=== PATIENT | male | born 1960 | race Caucasian/White ===

== ENCOUNTER 2020-12-04 14:54 | Inpatient (IN) | payer OTHER ==
[~2020-12-04 14:54] MED LIST: diazePAM 5 MG TABLET PO ONE
[2020-12-04] MEDS ORDERED: MAG HYDROX/AL HYDROX/SIMETH 30 ML UNIT-DOSE CUP PO PRN (18:37)
[2020-12-04] MEDS ORDERED: ACETAMINOPHEN 325 MG TABLET (FP) PO PRN ×2 (18:37)
[2020-12-04] MEDS ORDERED: NICOTINE 10 MG CARTRIDGE (INHALER) IH PRN (18:37)
[2020-12-04] MEDS ORDERED: MAGNESIUM HYDROX 2400MG/30ML ORAL SUSPENSION 30 ML CUP PO PRN (18:37)
[2020-12-04] MEDS ORDERED: MAGNESIUM CITRATE 300 ML BOTTLE PO PRN (18:37)
[2020-12-04] MEDS ORDERED: MENTHOL/PHENOL 1 EACH UD MM PRN (18:37)
[2020-12-04] MEDS ORDERED: ONDANSETRON *ODT* 4 MG TABLET SL PRN (18:37)
[2020-12-04] MEDS ORDERED: BISMUTH SUBSALICYLATE 524 MG/30 ML PO PRN (18:37)
[2020-12-04 19:11] VITALS: BMI 25.0
[2020-12-04] MEDS ORDERED: diazePAM 5 MG TABLET ONE ×2 (20:40→23:32)
[2020-12-04] MEDS: diazePAM 5 MG TABLET PO PRN (20:44)
[2020-12-04] MEDS: MELATONIN 5 MG TABLETS PO SCH (23:33)
[2020-12-04] MEDS: THIAMINE HCL 100 MG TABLET (FP) PO SCH (23:33)
[2020-12-04] MEDS: diazePAM 5 MG TABLET PO SCH (23:34)
[2020-12-05] MEDS ORDERED: diazePAM 5 MG TABLET ONE (05:32)
[2020-12-05] MEDS ORDERED: METHOCARBAMOL 500 MG TABLET ONE (05:32)
[2020-12-05] MEDS ORDERED: IBUPROFEN 400 MG TABLET (FP) PO ONE (05:33)
[2020-12-05] MEDS: IBUPROFEN 400 MG TABLET (FP) PO PRN (05:35)
[2020-12-05] MEDS: diazePAM 5 MG TABLET PO SCH ×4 (05:35→22:18)
[2020-12-05] MEDS: METHOCARBAMOL 500 MG TABLET PO PRN (05:35)
[2020-12-05] MEDS ORDERED: PERPHENAZINE 8 MG TABLET PO SCH (10:30)
[2020-12-05] MEDS: PRENATAL VITAMINS W/ FOLIC ACID TABLET (FP) PO SCH (10:31)
[2020-12-05] MEDS ORDERED: methaDONE HCL 40 MG DISPERSABLE TABLET PO ONE (10:46)
[2020-12-05] MEDS: ESCITALOPRAM OXALATE 10 MG TABLET PO SCH (11:03)
[2020-12-05 12:09] LABS: ALBUMIN 3.7 g/dl (3.4-5.0); BLOOD UREA NITROGEN 18.5 mg/dL (7-18); CALCIUM 8.5 mg/dL (8.5-10.1)
[2020-12-05 12:12] LABS: HEMATOCRIT 32.6 % (35.4-49); HEMOGLOBIN 11.1 GM/dL (11.7-16.9); MCHC 33.9 g/dl (32.0-35.9); MEAN CELL VOLUME 91.3 fl (80-96); PLATELET COUNT 131 10^3/uL (134-434); RBC 3.57 M/mm3 (4.00-5.60); RDW 14.3 % (11.9-15.9); WHITE BLOOD COUNT 3.3 K/mm3 (4.0-10.0)
[2020-12-05 12:14] LABS: BILIRUBIN,TOTAL 0.3 mg/dL (0.2-1); TOT PROT 6.8 g/dl (6.4-8.2)
[2020-12-05] MEDS: levETIRAcetam 500 MG TABLET (FP) PO SCH ×2 (12:31→22:18)
[2020-12-05] MEDS: PERPHENAZINE PO SCH (14:36)
[2020-12-05] MEDS: PSYLLIUM 5.85 GM PACKET PO SCH (15:07)
[2020-12-05] MEDS: DOCUSATE SODIUM 100 MG CAPSULE (FP) PO SCH ×2 (15:07→22:18)
[2020-12-05] MEDS: THIAMINE HCL 100 MG TABLET (FP) PO SCH (22:18)
[2020-12-05] MEDS: SENNOSIDES 8.6MG TABLET (FP) PO SCH (22:19)
[2020-12-05] MEDS: MELATONIN 5 MG TABLETS PO SCH (22:22)
[2020-12-06] MEDS: DOCUSATE SODIUM 100 MG CAPSULE (FP) PO SCH ×3 (05:49→22:22)
[2020-12-06] MEDS: diazePAM 5 MG TABLET PO SCH ×3 (05:50→22:24)
[2020-12-06] MEDS: methaDONE HCL 40 MG DISPERSABLE TABLET PO SCH (08:04)
[2020-12-06] MEDS: levETIRAcetam 500 MG TABLET (FP) PO SCH ×2 (09:02→22:22)
[2020-12-06] MEDS: diazePAM 5 MG TABLET PO PRN (09:03)
[2020-12-06] MEDS: PRENATAL VITAMINS W/ FOLIC ACID TABLET (FP) PO SCH (09:03)
[2020-12-06] MEDS: ESCITALOPRAM OXALATE 10 MG TABLET PO SCH (09:03)
[2020-12-06] MEDS: IBUPROFEN 400 MG TABLET (FP) PO PRN (09:04)
[2020-12-06] MEDS: METHOCARBAMOL 500 MG TABLET PO PRN (09:04)
[2020-12-06] MEDS: PERPHENAZINE PO SCH (09:06)
[2020-12-06] MEDS: PSYLLIUM 5.85 GM PACKET PO SCH (13:25)
[2020-12-06] MEDS: MELATONIN 5 MG TABLETS PO SCH (22:22)
[2020-12-06] MEDS: SENNOSIDES 8.6MG TABLET (FP) PO SCH (22:22)
[2020-12-06] MEDS: THIAMINE HCL 100 MG TABLET (FP) PO SCH (22:24)
[2020-12-07] MEDS: diazePAM 5 MG TABLET PO PRN ×2 (00:49→10:26)
[2020-12-07] MEDS: DOCUSATE SODIUM 100 MG CAPSULE (FP) PO SCH ×3 (05:53→22:38)
[2020-12-07] MEDS: methaDONE HCL 40 MG DISPERSABLE TABLET PO SCH (05:53)
[2020-12-07] MEDS: diazePAM 5 MG TABLET PO SCH ×2 (05:53→18:18)
[2020-12-07] MEDS: PRENATAL VITAMINS W/ FOLIC ACID TABLET (FP) PO SCH (10:25)
[2020-12-07] MEDS: levETIRAcetam 500 MG TABLET (FP) PO SCH ×2 (10:25→22:38)
[2020-12-07] MEDS: ESCITALOPRAM OXALATE 10 MG TABLET PO SCH (10:26)
[2020-12-07] MEDS: METHOCARBAMOL 500 MG TABLET PO PRN ×2 (10:26→23:34)
[2020-12-07] MEDS: PERPHENAZINE PO SCH (10:26)
[2020-12-07] MEDS: PSYLLIUM 5.85 GM PACKET PO SCH (14:13)
[2020-12-07] MEDS: THIAMINE HCL 100 MG TABLET (FP) PO SCH (22:38)
[2020-12-07] MEDS: SENNOSIDES 8.6MG TABLET (FP) PO SCH (22:38)
[2020-12-07] MEDS: MELATONIN 5 MG TABLETS PO SCH ×2 (22:38→22:41)
[2020-12-07] MEDS: IBUPROFEN 400 MG TABLET (FP) PO PRN (23:33)
[2020-12-08] MEDS: hydrOXYzine PAMOATE 25 MG CAPSULE (FP) PO PRN ×2 (01:00→11:07)
[2020-12-08] MEDS ORDERED: diazePAM 5 MG TABLET PO ONE (06:00)
[2020-12-08] MEDS: methaDONE HCL 40 MG DISPERSABLE TABLET PO SCH (06:27)
[2020-12-08] MEDS: DOCUSATE SODIUM 100 MG CAPSULE (FP) PO SCH ×3 (06:27→22:19)
[2020-12-08] MEDS ORDERED: LACTULOSE 20 GM/30 ML UDC (FOR ORAL USE ONLY) PO ONE (10:30)
[2020-12-08] MEDS: levETIRAcetam 500 MG TABLET (FP) PO SCH ×2 (11:07→22:20)
[2020-12-08] MEDS: PRENATAL VITAMINS W/ FOLIC ACID TABLET (FP) PO SCH (11:07)
[2020-12-08] MEDS: ESCITALOPRAM OXALATE 10 MG TABLET PO SCH (11:07)
[2020-12-08] MEDS: METHOCARBAMOL 500 MG TABLET PO PRN (11:08)
[2020-12-08] MEDS: PERPHENAZINE PO SCH (11:14)
[2020-12-08] MEDS: PSYLLIUM 5.85 GM PACKET PO SCH (14:47)
[2020-12-08] MEDS: THIAMINE HCL 100 MG TABLET (FP) PO SCH (22:20)
[2020-12-08] MEDS: SENNOSIDES 8.6MG TABLET (FP) PO SCH (22:20)
[2020-12-08] MEDS: MELATONIN 5 MG TABLETS PO SCH (23:24)
[2020-12-09] MEDS: methaDONE HCL 40 MG DISPERSABLE TABLET PO SCH (06:03)
[2020-12-09] MEDS: DOCUSATE SODIUM 100 MG CAPSULE (FP) PO SCH ×2 (06:04→13:17)
[2020-12-09] MEDS: PRENATAL VITAMINS W/ FOLIC ACID TABLET (FP) PO SCH (10:27)
[2020-12-09] MEDS: METHOCARBAMOL 500 MG TABLET PO PRN (10:27)
[2020-12-09] MEDS: levETIRAcetam 500 MG TABLET (FP) PO SCH (10:27)
[2020-12-09] MEDS: ESCITALOPRAM OXALATE 10 MG TABLET PO SCH (10:28)
[2020-12-09] MEDS: hydrOXYzine PAMOATE 25 MG CAPSULE (FP) PO PRN (10:28)
[2020-12-09] MEDS: PERPHENAZINE PO SCH (10:29)
[2020-12-09 12:12] VITALS: BP 114/71; PULSE 63; TEMP 97.8
[2020-12-09] MEDS: PSYLLIUM 5.85 GM PACKET PO SCH (13:18)
== END 2020-12-09 13:24 | disposition other institution (70) | DRG 897 ==
LOC: YASAS 14:54 → Y6N 12-05 08:49
PROVIDERS: ADMIT Allergy & Immunology; ATTEND Allergy & Immunology
PROC: HZ2ZZZZ Detoxification Services for Substance Abuse Treatment (ICD-10-PCS; principal; 2020-12-05)
DX: F13.230 Sedative, hypnotic or anxiolytic dependence with withdrawal, uncomplicated (principal); F11.20 Opioid dependence, uncomplicated; F25.9 Schizoaffective disorder, unspecified; G40.909 Epilepsy, unspecified, not intractable, without status epilepticus; D69.6 Thrombocytopenia, unspecified; K59.00 Constipation, unspecified; K57.30 Diverticulosis of large intestine without perforation or abscess without bleeding; M19.011 Primary osteoarthritis, right shoulder; M19.012 Primary osteoarthritis, left shoulder; M16.12 Unilateral primary osteoarthritis, left hip; Z87.891 Personal history of nicotine dependence; Z59.0 Homelessness
CPT/HCPCS: 36415; 80053; 80177; 85027; 86780; 93005; 93010; C9803; U0003; U0005

== ENCOUNTER 2020-12-09 13:54 | Inpatient (IN) | payer OTHER ==
[~2020-12-09 13:54] MED LIST changes: +ACETAMINOPHEN 325 MG TABLET (FP) PO PRN; +IBUPROFEN 400 MG TABLET (FP) PO PRN; +LOPERAMIDE HCL 2 MG CAPSULE PO PRN; +MAG HYDROX/AL HYDROX/SIMETH 30 ML UNIT-DOSE CUP PO PRN; +MAGNESIUM CITRATE 300 ML BOTTLE PO PRN; +MAGNESIUM HYDROX 2400MG/30ML ORAL SUSPENSION 30 ML CUP PO PRN; +P-EPHED 60MG/TRIPROLIDI 2.5MG TABLET PO PRN; -diazePAM 5 MG TABLET PO ONE; +guaiFENesin 200 MG/10 ML 10 ML UNIT-DOSE CUPS PO PRN
[2020-12-09] MEDS: PSYLLIUM 5.85 GM PACKET PO SCH (16:19)
[2020-12-09] MEDS: DOCUSATE SODIUM 100 MG CAPSULE (FP) PO SCH ×2 (16:19→22:16)
[2020-12-09] MEDS: MELATONIN 5 MG TABLETS PO SCH (22:16)
[2020-12-09] MEDS: levETIRAcetam 500 MG TABLET (FP) PO SCH (22:16)
[2020-12-09] MEDS: THIAMINE HCL 100 MG TABLET (FP) PO SCH (22:17)
[2020-12-09] MEDS: SENNOSIDES 8.6MG TABLET (FP) PO SCH (22:18)
[2020-12-10] MEDS: DOCUSATE SODIUM 100 MG CAPSULE (FP) PO SCH ×4 (06:15→21:04)
[2020-12-10] MEDS ORDERED: methaDONE HCL 40 MG DISPERSABLE TABLET PO ONE (08:21)
[2020-12-10] MEDS ORDERED: PT OWN MED DRAWER 7, Y5N ONE ×2 (08:56→20:16)
[2020-12-10] MEDS: PRENATAL VITAMINS W/ FOLIC ACID TABLET (FP) PO SCH (09:30)
[2020-12-10] MEDS: ESCITALOPRAM OXALATE 10 MG TABLET PO SCH (09:31)
[2020-12-10] MEDS: levETIRAcetam 500 MG TABLET (FP) PO SCH ×2 (11:46→21:04)
[2020-12-10] MEDS ORDERED: PNEUMOCOCCAL 23 VACCINE 0.5 ML VIAL IM ONE (12:00)
[2020-12-10] MEDS ORDERED: TUBERCULIN PPD 5 TU/0.1ML VIAL ID ONE (12:06)
[2020-12-10] MEDS: PSYLLIUM 5.85 GM PACKET PO SCH ×2 (14:33→15:30)
[2020-12-10] MEDS ORDERED: PNEUMOC 13-VAL CONJ-DIP CRM/PF 0.5 ML DISP.SYRIN IM ONE (14:39)
[2020-12-10] MEDS ORDERED: ONDANSETRON *ODT* 4 MG TABLET SL PRN (15:27)
[2020-12-10] MEDS ORDERED: levETIRAcetam 500 MG TABLET (FP) PO SCH (15:27)
[2020-12-10] MEDS: SENNOSIDES 8.6MG TABLET (FP) PO SCH (21:04)
[2020-12-10] MEDS: MELATONIN 5 MG TABLETS PO SCH (21:04)
[2020-12-10] MEDS: THIAMINE HCL 100 MG TABLET (FP) PO SCH (21:04)
[2020-12-11] MEDS: methaDONE HCL 40 MG DISPERSABLE TABLET PO SCH (06:50)
[2020-12-11] MEDS: DOCUSATE SODIUM 100 MG CAPSULE (FP) PO SCH ×3 (06:50→21:13)
[2020-12-11] MEDS: levETIRAcetam 500 MG TABLET (FP) PO SCH ×2 (09:42→22:54)
[2020-12-11] MEDS: ESCITALOPRAM OXALATE 10 MG TABLET PO SCH (09:42)
[2020-12-11] MEDS: PRENATAL VITAMINS W/ FOLIC ACID TABLET (FP) PO SCH (09:42)
[2020-12-11] MEDS: METHOCARBAMOL 500 MG TABLET PO PRN (14:40)
[2020-12-11] MEDS: PSYLLIUM 5.85 GM PACKET PO SCH (14:41)
[2020-12-11] MEDS ORDERED: PT OWN MED DRAWER 7, Y5N ONE ×2 (18:31→22:49)
[2020-12-11] MEDS: SENNOSIDES 8.6MG TABLET (FP) PO SCH (21:14)
[2020-12-11] MEDS: THIAMINE HCL 100 MG TABLET (FP) PO SCH (21:14)
[2020-12-11] MEDS: MELATONIN 5 MG TABLETS PO SCH (21:14)
[2020-12-11] MEDS ORDERED: levETIRAcetam 500 MG TABLET (FP) PO ONE (22:14)
[2020-12-12] MEDS: METHOCARBAMOL 500 MG TABLET PO PRN (01:01)
[2020-12-12] MEDS: diphenhydrAMINE HCL 25 MG CAPSULE (FP) PO PRN ×2 (02:26→21:11)
[2020-12-12] MEDS: DOCUSATE SODIUM 100 MG CAPSULE (FP) PO SCH ×3 (06:07→21:11)
[2020-12-12] MEDS: methaDONE HCL 40 MG DISPERSABLE TABLET PO SCH (06:07)
[2020-12-12] MEDS: ESCITALOPRAM OXALATE 10 MG TABLET PO SCH (09:49)
[2020-12-12] MEDS: PRENATAL VITAMINS W/ FOLIC ACID TABLET (FP) PO SCH (09:49)
[2020-12-12] MEDS: levETIRAcetam 500 MG TABLET (FP) PO SCH ×3 (09:49→21:12)
[2020-12-12] MEDS: PSYLLIUM 5.85 GM PACKET PO SCH (14:58)
[2020-12-12] MEDS ORDERED: PT OWN MED DRAWER 7, Y5N ONE (18:51)
[2020-12-12] MEDS: THIAMINE HCL 100 MG TABLET (FP) PO SCH (21:11)
[2020-12-12] MEDS: MELATONIN 5 MG TABLETS PO SCH (21:11)
[2020-12-12] MEDS: SENNOSIDES 8.6MG TABLET (FP) PO SCH (21:11)
[2020-12-13] MEDS: methaDONE HCL 40 MG DISPERSABLE TABLET PO SCH (06:10)
[2020-12-13] MEDS: DOCUSATE SODIUM 100 MG CAPSULE (FP) PO SCH ×3 (06:11→21:01)
[2020-12-13 06:57] VITALS: TEMP 98
[2020-12-13] MEDS ORDERED: PT OWN MED DRAWER 7, Y5N ONE ×4 (08:24→18:53)
[2020-12-13] MEDS: ESCITALOPRAM OXALATE 10 MG TABLET PO SCH (09:38)
[2020-12-13] MEDS: levETIRAcetam 500 MG TABLET (FP) PO SCH ×2 (09:39→21:10)
[2020-12-13] MEDS: PRENATAL VITAMINS W/ FOLIC ACID TABLET (FP) PO SCH (09:40)
[2020-12-13] MEDS ORDERED: SIMETHICONE 80 MG TAB.CHEW (FP) PO PRN (10:09)
[2020-12-13] MEDS: PSYLLIUM 5.85 GM PACKET PO SCH (14:09)
[2020-12-13] MEDS: THIAMINE HCL 100 MG TABLET (FP) PO SCH (21:10)
[2020-12-13] MEDS: SENNOSIDES 8.6MG TABLET (FP) PO SCH (21:10)
[2020-12-13] MEDS: MELATONIN 5 MG TABLETS PO SCH (21:10)
[2020-12-13] MEDS ORDERED: hydrOXYzine PAMOATE 50 MG CAPSULE (FP) PO ONE (22:27)
[2020-12-13] MEDS ORDERED: traZODone HCL 50 MG TABLET (FP) PO ONE (23:37)
[2020-12-14] MEDS: DOCUSATE SODIUM 100 MG CAPSULE (FP) PO SCH (06:37)
[2020-12-14] MEDS: methaDONE HCL 40 MG DISPERSABLE TABLET PO SCH (06:37)
[2020-12-14] MEDS: PRENATAL VITAMINS W/ FOLIC ACID TABLET (FP) PO SCH (09:58)
[2020-12-14] MEDS: ESCITALOPRAM OXALATE 10 MG TABLET PO SCH (09:58)
[2020-12-14] MEDS: levETIRAcetam 500 MG TABLET (FP) PO SCH (09:58)
[2020-12-14 12:41] VITALS: BP 133/81; PULSE 84
== END 2020-12-14 11:30 | disposition home or self-care (01) | DRG 895 ==
LOC: YASAS 13:54 → Y5N 13:56
PROVIDERS: ADMIT Allergy & Immunology; ATTEND Allergy & Immunology
PROC: HZ42ZZZ Group Counseling for Substance Abuse Treatment, Cognitive-Behavioral (ICD-10-PCS; principal; 2020-12-09)
DX: F13.20 Sedative, hypnotic or anxiolytic dependence, uncomplicated (principal); F11.20 Opioid dependence, uncomplicated; F25.9 Schizoaffective disorder, unspecified; G40.909 Epilepsy, unspecified, not intractable, without status epilepticus; Z87.19 Personal history of other diseases of the digestive system